=== PATIENT | female | born 2000 | race Hispanic/Latino ===

== ENCOUNTER 2018-04-04 19:32 | Emergency (ER) | payer SELFPAY ==
[2018-04-04 20:03] LABS: Hematocrit 40.2 % (30.3-42.9); Hemoglobin 13.2 gm/dl (10.1-14.3); Mean Corpuscular HGB Conc 33 % (30-34); Mean Corpuscular Hemoglobin 32 pg (28-32); Mean Corpuscular Volume 98 fl (79-97); Platelet Count 244 K/mm3 (140-440); Red Blood Count 4.11 M/mm3 (3.65-5.03); Red Cell Distribution Width 13.6 % (13.2-15.2)
[2018-04-04 20:23] LABS: BUN/Creatinine Ratio 33; Blood Urea Nitrogen 13 mg/dL (7-17); Calcium 9.5 mg/dL (8.4-10.2); Hemolysis Index 5
[2018-04-04 20:26] LABS: Bilirubin,Urine NEG (Negative); Blood,Urine NEG (Negative); Color,Urine Yellow (Yellow); Mucus,Urine 2+ /HPF; Urobilinogen,Urine < 2.0 mg/dL (<2.0)
[2018-04-04] MEDS ORDERED: ZOFRAN ODT ONE (20:30)
[2018-04-04] MEDS ORDERED: ZOFRAN ODT PO ONE (20:33)
--- NOTE | 2018-04-04 20:43 | Cat Scan Report ---
FINAL REPORT EXAM: CT HEAD/BRAIN WO CON HISTORY: fall seizures TECHNIQUE: CT head without contrast PRIORS: None. FINDINGS: No acute intra-axial or extra-axial hemorrhage is identified. There is no evidence of midline shift or mass effect. The ventricles and sulci are within normal limits. Epps-white matter differentiation is intact. No acute parenchymal abnormalities seen. Bony calvarium is grossly intact. Visualized portions of the mastoids and paranasal sinuses are unremarkable. IMPRESSION: Negative CT head
[2018-04-04] MEDS ORDERED: KEPPRA 1,000 MG/NS 0.75% 100ML 1,000 MG/100 ML BAG IV ONE (23:22)
[2018-04-04] MEDS ORDERED: ZOFRAN IV ONE (23:27)
--- NOTE | 2018-04-04 23:28 | Emergency Department Report ---
HPI - General Chief Complaint: Seizure Time Seen by Provider: 04/04/18 23:17 - HPI HPI: 17-year-old female presents to the emergency department with complaint of having a few seizures earlier in the day. Last night patient fell backwards off of the couch accidentally and hit the back of her head. She did not have any loss of consciousness. However she began having a posterior headache and nausea and vomiting and has been unable to keep down any food or even her medications. She takes Dilantin 100 mg twice daily and Keppra 500 mg twice daily. She has a neurologist through the [facility]. ED Past Medical Hx - Past Medical History Previous Medical History?: Yes Hx Seizures: Yes - Surgical History Past Surgical History?: No - Social History Smoking Status: Current Every Day Smoker Substance Use Type: Alcohol - Medications Home Medications: Home Medications Medication Instructions Recorded Confirmed Last Taken Type Ondansetron [Zofran Odt] 4 mg PO Q8H PRN #10 tab.rapdis 04/05/18 Unknown Rx ED Review of Systems ROS: Stated complaint: SEIZURES,HEADACHE Other details as noted in HPI Comment: All other systems reviewed and negative Constitutional: denies: chills, fever Eyes: denies: eye pain, eye discharge, vision change ENT: denies: ear pain, throat pain Respiratory: denies: cough, shortness of breath, wheezing Cardiovascular: denies: chest pain, palpitations Gastrointestinal: nausea, vomiting Genitourinary: denies: urgency, dysuria, discharge Musculoskeletal: denies: back pain, joint swelling, arthralgia Skin: denies: rash, lesions Neurological: headache, other (seizures) Physical Exam - Physical Exam Vital Signs: Vital Signs 04/04/18 19:39 Temperature 97.7 F Pulse Rate 97 H Respiratory 17 Rate Blood Pressure 114/74 O2 Sat by Pulse 98 Oximetry Physical Exam: GENERAL: The patient is well-developed well-nourished. HENT: Normocephalic. Atraumatic. Patient has moist mucous membranes. EYES: Extraocular motions are intact. Pupils equal reactive to light bilaterally. No nystagmus. NECK: Supple. Trachea is midline. CHEST/LUNGS: Clear to auscultation. There is no respiratory distress noted. HEART/CARDIOVASCULAR: Regular. There is no tachycardia. There is no murmur. ABDOMEN: Abdomen is soft, nontender. Patient has normal bowel sounds. There is no abdominal distention. SKIN: Skin is warm and dry. NEURO: The patient is awake, alert, and oriented. The patient is cooperative. The patient has no focal neurologic deficits. The patient has normal speech. Cranial nerves 2 through 12 grossly intact. MUSCULOSKELETAL: There is no tenderness or deformity. There is no limitation range of motion. There is no evidence of acute injury. ED Course Vital Signs 04/04/18 19:39 Temperature 97.7 F Pulse Rate 97 H Respiratory 17 Rate Blood Pressure 114/74 O2 Sat by Pulse 98 Oximetry ED Medical Decision Making - Lab Data Result diagrams: 04/04/18 19:55 04/04/18 19:55 - Radiology Data Radiology results: report reviewed CT of the head does not show any acute intracranial process including no ischemia, shift, mass, bleeding or skull fracture. - Medical Decision Making Patient presents after having some nausea and vomiting and then a few seizures. Patient says that she was unable to take her Keppra secondary to the nausea and vomiting but also admits that she does not always take the Dilantin as it "keeps me up." Labs are mostly unremarkable except for the Dilantin level was basically 0. She had a CT scan of the head did not show any bleed, shift, mass , ischemia or any acute process. Vital signs stable throughout the ED course. Patient was loaded with both Keppra and Dilantin. She has been in the emergency department for many hours and reevaluated multiple times and there has been no further seizure-like activity. She has not had any focal, motor or sensory deficits in her cranial nerves are intact. She has good follow-up with a neurologist and says that she has her antiepileptic medications at home to take. She will be prescribed some Zofran ODT for the nausea and encouraged to return to the ER with any worsening of her symptoms or any acute distress. - Differential Diagnosis epilepsy, medication noncompliance, hypoglycemia Critical Care Time: No Critical care attestation.: If time is entered above; I have spent that time in minutes in the direct care of this critically ill patient, excluding procedure time. ED Disposition Clinical Impression: Seizure, Subtherapeutic phenytoin level Nausea & vomiting Qualifiers: Vomiting type: unspecified Vomiting Intractability: non-intractable Qualified Code(s): R11.2 - Nausea with vomiting, unspecified Disposition: DC- TO HOME OR SELFCARE Is pt being admited?: No Condition: Stable Instructions: Dehydration (ED), Epilepsy (ED), Acute Nausea and Vomiting (ED) Additional Instructions: These make sure to take your seizure medications. Follow-up with your neurologist in the next few days. Increase your oral rehydration. Return to the emergency Department with any worsening of your symptoms or any acute distress. Prescriptions: Ondansetron [Zofran Odt] 4 mg PO Q8H PRN #10 tab.rapdis PRN Reason: Nausea Referrals: PRIMARY CARE, [Primary Care Provider] - [facility] Time of Disposition: 03:23
[2018-04-05] MEDS ORDERED: DILANTIN 1,000 MG in NACL 0.9% 250ML 250 ML IV ONE (01:15)
[2018-04-05] MEDS ORDERED: TYLENOL PO ONE (02:25)
[2018-04-05 03:27] VITALS: BP 101/62
== END 2018-04-05 03:42 | disposition home or self-care (01) ==
LOC: ED 19:32
DX: R56.9 Unspecified convulsions (principal); R11.2 Nausea with vomiting, unspecified; R79.1 Abnormal coagulation profile; F17.200 Nicotine dependence, unspecified, uncomplicated
CPT/HCPCS: 36415; 70450; 80048; 80185; 81001; 84703; 85027; 96365; 96367; 96375; 99284; J1165; J1953; J2405; J7050; Q0162